=== PATIENT | male | born 1960 | race Caucasian/White ===

== ENCOUNTER 2018-03-12 09:51 | Emergency (ER) | payer MEDICARE ==
[2018-03-12] MEDS ORDERED: L.E.T. GEL 4%/0.5%/0.18% 3ML 3 ML/SYR SYG TP ONE (10:30)
== END 2018-03-12 13:22 | disposition home or self-care (01) ==
LOC: EDBD 09:51 → EDH 09:51
DX: S01.81XA Laceration without foreign body of other part of head, initial encounter (principal); Z88.2 Allergy status to sulfonamides; Z88.6 Allergy status to analgesic agent; Z88.8 Allergy status to other drugs, medicaments and biological substances; W07.XXXA Fall from chair, initial encounter; Y93.89 Activity, other specified; Y92.098 Other place in other non-institutional residence as the place of occurrence of the external cause; Y99.8 Other external cause status
CPT/HCPCS: 12011; 70450; 70486

== ENCOUNTER 2019-11-09 12:14 | Inpatient (IN) | payer MEDICARE ==
[2019-11-09 13:45] LABS: BASOPHILS % (AUTO) 0.1 % (0.0-5.0); HEMATOCRIT 30.6 % (42-54); LYMPHOCYTES % (AUTO) 1.9 % (21.0-51.0); MEAN CORPUSCULAR HEMOGLOBIN 30.4 pg (27.0-33.0); MEAN CORPUSCULAR HGB CONC 33.7 g/dL (32.0-36.0); MEAN CORPUSCULAR VOLUME 90.3 fL (79-99); MONOCYTES % (AUTO) 2.6 % (3.0-13.0); NEUTROPHILS % (AUTO) 94.4 % (40.0-77.0); PLATELET COUNT (AUTO) 167 K/uL (130-400); RED BLOOD CELL COUNT(AUTO) 3.39 MIL/uL (4.50-6.20); RED CELL DISTRIBUTION WIDTH 14.2 % (11.0-15.5); WHITE BLOOD COUNT (AUTO) 15.9 K/uL (4.8-10.8)
[2019-11-09] MEDS ORDERED: LORAZEPAM 2 MG/ML 1 ML VIAL ONE (13:47)
[2019-11-09 13:50] LABS: CREATININE 0.9 mg/dL (0.5-1.5); POTASSIUM 3.8 mmol/L (3.5-5.1)
[2019-11-09 13:52] LABS: INR 1.02 (0.85-1.15); PARTIAL THROMBOPLASTIN TIME 36.4 SEC (26.3-35.5)
[2019-11-09 13:54] LABS: ALBUMIN 2.9 g/dL (3.5-5.0); BILIRUBIN,TOTAL 0.7 mg/dL (0.2-1.0); TOTAL PROTEIN, SERUM 7.2 g/dL (6.0-8.3)
[2019-11-09 14:06] LABS: APPEARANCE,URINE Cloudy (CLEAR); BILIRUBIN,URINE Moderate (NEGATIVE); COLOR,URINE Dark Yellow (YELLOW); GLUCOSE, URINE (UA) Negative (NEGATIVE); KETONES,URINE Trace mg/dL (NEGATIVE); LEUKOCYTE ESTERASE ,URINE Small (NEGATIVE); NITRATE,URINE Negative (NEGATIVE); OCCULT BLOOD,URINE Negative (NEGATIVE); PROTEIN,URINE POS 1+ mg/dL (NEGATIVE)
[2019-11-09 14:20] LABS: BACTERIA,URINE Moderate /HPF (None Seen); MUCUS,URINE Few LPF (None Seen); SQUAMOUS EPITHELIAL CELL,UR Moderate /HPF (0-2)
[2019-11-09] MEDS ORDERED: CEFTRIAXONE SODIUM 1 GM ONE (15:45)
[2019-11-09] MEDS ORDERED: SODIUM CHLORIDE 0.9% 50 ML IV ONE (15:46)
[2019-11-09] MEDS: CEFTRIAXONE SODIUM 1 GM IV SCH (18:00)
[2019-11-09] MEDS ORDERED: ACETAMINOPHEN 325 MG TAB PO PRN (18:15)
[2019-11-09] MEDS: SODIUM CHLORIDE 0.9% 1000ML 1,000 ML IV SCH (18:15)
[2019-11-09] MEDS ORDERED: ONDANSETRON HCL 4 MG/2 ML VIAL IVP PRN (18:15)
[2019-11-09 23:20] VITALS: BP 125/67
[2019-11-10] MEDS ORDERED: LAMO100T66 PO (02:07)
[2019-11-10] MEDS ORDERED: BUSP30TA2 PO (02:07)
[2019-11-10] MEDS ORDERED: LURA120T PO (02:07)
[2019-11-10] MEDS ORDERED: LEVO88TA7 PO (02:07)
[2019-11-10] MEDS ORDERED: LEVE250T2 PO (02:07)
[2019-11-10] MEDS ORDERED: PHEN100C9 PO (02:07)
[2019-11-10] MEDS ORDERED: CLON0.5T4 PO (02:07)
[2019-11-10] MEDS ORDERED: MULT-411 PO (02:07)
--- NOTE | 2019-11-10 04:49 | NUR ---
Patient received from ED accompanied by a nurse to 331. Patient transferred from stretcher to bed and made comfortable. Assessment and nursing data base completed. Patient has on his left forehead, induration/bump with 2.5cm x 1cm laceration. Right forehead also has a 2cm x1/2cm laceration including small scratches on his head and face. Sacral area is binu. Skin barrier cream applied. Mepilex applied to ирина area on sacrum. Alexander catheter is in place and draining emir urine. Patient is confused and constantly trying to get out of bed, needing constant reminder to stay in bed. Bed alarm is on and functioning. Patient is in stable condition with no acute distress at this time. Will continue to monitor.
[2019-11-10] MEDS: CEFTRIAXONE SODIUM 1 GM IV SCH ×2 (05:59→18:57)
[2019-11-10 07:15] LABS: BASOPHILS % (AUTO) 0.2 % (0.0-5.0); EOSINOPHILS % (AUTO) 1.1 % (0.0-8.0); HEMATOCRIT 26.4 % (42-54); LYMPHOCYTES % (AUTO) 10.5 % (21.0-51.0); MEAN CORPUSCULAR HEMOGLOBIN 30.5 pg (27.0-33.0); MEAN CORPUSCULAR HGB CONC 33.7 g/dL (32.0-36.0); MEAN CORPUSCULAR VOLUME 90.4 fL (79-99); MONOCYTES % (AUTO) 4.6 % (3.0-13.0); NEUTROPHILS % (AUTO) 83.1 % (40.0-77.0); PLATELET COUNT (AUTO) 137 K/uL (130-400); RED BLOOD CELL COUNT(AUTO) 2.92 MIL/uL (4.50-6.20); RED CELL DISTRIBUTION WIDTH 14.6 % (11.0-15.5); WHITE BLOOD COUNT (AUTO) 6.3 K/uL (4.8-10.8)
[2019-11-10 07:29] LABS: ALBUMIN 2.2 g/dL (3.5-5.0); BILIRUBIN,TOTAL 0.3 mg/dL (0.2-1.0); CREATININE 0.7 mg/dL (0.5-1.5); POTASSIUM 3.8 mmol/L (3.5-5.1); TOTAL PROTEIN, SERUM 5.9 g/dL (6.0-8.3)
[2019-11-10 08:00] VITALS: BP 117/86
[2019-11-10] MEDS ORDERED: BUSPIRONE HCL 5 MG TABLET PO SCH (08:30)
[2019-11-10] MEDS ORDERED: BUSPIRONE HCL 30 MG PO SCH (09:00)
[2019-11-10] MEDS: MULTIVITAMINS/MINERALS/IRO TAB PO SCH (09:00)
[2019-11-10] MEDS: ENOXAPARIN SODIUM 30 MG/0.3 ML SQ SCH (10:21)
[2019-11-10] MEDS: PHENYTOIN SODIUM 100 MG ERCAP PO SCH ×3 (10:23→21:35)
[2019-11-10] MEDS: LEVETIRACETAM 250 MG TABLET PO SCH ×2 (10:23→21:35)
[2019-11-10] MEDS: LAMOTRIGINE 100 MG TABLET PO SCH ×2 (10:23→21:35)
[2019-11-10] MEDS: SODIUM CHLORIDE 0.9% 1000ML 1,000 ML IV SCH (10:24)
[2019-11-10] MEDS: FAMOTIDINE/PF 20 MG/2 ML VIAL IV SCH ×2 (10:24→21:36)
[2019-11-10 12:00] VITALS: BP 108/71
--- NOTE | 2019-11-10 12:39 | NUR ---
DYSPHAGIA EVAL COMPLETED. RECOMMEND MECHANICAL SOFT/GROUND, THIN LIQUIDS; PILLS CRUSHED WITH APPLESAUCE. Addendum: 11/10/19 at 1241 by RUTH COY, [facility] ST Amended: Links added.
[2019-11-10] MEDS ORDERED: MULTIVITAMINS/MINERALS/IRO TAB PO SCH (13:54)
[2019-11-10] MEDS ORDERED: LORAZEPAM 2 MG/ML 1 ML VIAL IVP ONE ×2 (14:25→16:40)
--- NOTE | 2019-11-10 15:01 | NUR ---
RD NOTIFICATION Pt admitted with Sepsis, UTI. Hx CP, severe IDD. Pt s/p ST evaluation; recommended Mechanical Soft, Ground diet order. GI Soft Puree diet order in place. FTT per EMR. Recommend Mechanical soft Ground diet order Recommend ENsure BID RD to continue to monitor. Please notify as additional nutrition concerns arise. Thank you.
--- NOTE | 2019-11-10 15:15 | NUR ---
PT WAS STILL VERY COMBATIVE AFTER RECEIVING 0.25 MG OF ATIVAN AND NOT ABLE TO GO FOR CT SCAN; I HAVE CALLED BUSINESS SUPPORT SPECIALIST CARLTON Cochran AND INFORMED HER AND RECEIVED ORDER FOR ATIVAN 0.5 MG I HAVE ALSO INFORMED HER THAT WE DO NOT CARRY RENGAL AND SHE STATED SHE TRY AND HAVE THE CARE FACILITY HE'S FROM BRING IT TO THE HOSPITAL. I HAVE CALLED REST [facility] FACILITY AND THE NUMBER IS BUSY WILL CONT TO MONITOR.
[2019-11-10 16:00] VITALS: BP 102/62
[2019-11-10] MEDS: BUSPIRONE HCL 5 MG TABLET PO SCH ×2 (17:00→21:34)
--- NOTE | 2019-11-10 17:13 | NUR ---
[facility] CM spoke to Meagan calle que for nursing home. Pt is assist with ADL's, currently living at a nursing home with 6 other residence. residential has DMEs available for pts. Denies any other equipments/services. Feels safe to go back to nursing home once stable. May Call [facility] or Nacho Boyle once pt ready to DC so that pt can be picked up via transport van. DC plan back to nursing home once stable. CM to cont to follow up. Addendum: 11/10/19 at 1716 by MIGUEL SAMPSON LVN CM Amended: Links added.
[2019-11-10] MEDS ORDERED: LORAZEPAM 2 MG/ML 1 ML VIAL ONE (18:52)
[2019-11-10] MEDS: LURASIDONE HCL 120 MG PO SCH (18:54)
--- NOTE | 2019-11-10 19:58 | NUR ---
PT FOUND ON FLOOR AT [facility] 10AM THIS MORNING, HE GOT OUT OF BED ON HIS OWN WITH ALL 4 SIDE RAILS UP, WE WERE ALERTED BECAUSE HIS BED ALARM WENT OFF; PT APPEARS TO HAVE NO INJURIES BUT IT IS DIFFICULT TO TELL BECAUSE OF HIS LOW MENTAL CAPACITY; I INFORMED CHEYANNE VINCENT, ASIYA MORALES, PT'S CARE FACILITY [facility] AND SPOKE TO DELANEY HENSON THERE; SHE STATES PT HAS FREQUENT FALLS THAT IS PART OF THE DIFFICULTY OF CARING FOR HIM AND THAT HE HAS NO FAMILY; PT WAS ASSISTED BACK TO BED REQUIRING ONE MAN ASSIST, HE IS ABLE TO STAND AND STEP BACK TO BED, NO NEW CUTS OR SKIN TEARS NOTED; CT OF HEAD WAS ORDERED BECAUSE PT HAS BEEN ON L[facility]OX.
[2019-11-10 20:00] VITALS: BP 98/68
--- NOTE | 2019-11-10 23:25 | NUR ---
AGITATION/COMBATIVE PT WITH INCREASED AGITATION AND COMBATIVENESS. PT PULLING ON HIS ELY AND IV SITE. REDIRECTION PROVIDED REPEATEDLY WITHOUT ANY SUCCESS. PAGED ONCALL TO REPORT PT'S CURRENT STATE. DR. OSULLIVAN ORDERED HALDOL 4MG IM X ONE. ORDER PLACED IN Orbiter, WILL CARRY OUT ORDER AND CLOSELY MONITOR PT.
[2019-11-10] MEDS ORDERED: HALOPERIDOL LACTATE 5 MG/ML VIAL IV ONE (23:45)
[2019-11-10] MEDS ORDERED: HALOPERIDOL LACTATE 5 MG/ML VIAL ONE (23:57)
[2019-11-11] VITALS (8 sets, daily range): BP systolic 95–117; BP diastolic 48–72
--- NOTE | 2019-11-11 00:29 | NUR ---
UPDATE PT RESTING CALMLY IN BED AFTER MEDICATION ADMIN. EVEN, UNLABORED RESPIRATIONS. X4 BED RAILS UP WITH SZ PADS IN PLACE. SITTER AT BEDSIDE. WILL CONT TO MONITOR.
--- NOTE | 2019-11-11 04:13 | NUR ---
NURSING ROUNDS PT ASLEEP, OBSERVED RISE AND FALL OF CHEST. EVEN, UNLABORED RESP. SITTER AT BED SIDE. IV FLUID INFUSING AT THIS TIME PER MAR. SZ PADS ON RAILS X4. VS STABLE. WILL CONTINUE TO MONITOR.
--- NOTE | 2019-11-11 04:47 | NUR ---
TRANSFER TO ROOM 225 ENDORSED TELEPHONE REPORT TO MANJU Mayfield RN. PT KARDEX SENT ALONG WITH CHART.
[2019-11-11 05:26] LABS: BASOPHILS % (AUTO) 0.2 % (0.0-5.0); EOSINOPHILS % (AUTO) 1.1 % (0.0-8.0); MEAN CORPUSCULAR HEMOGLOBIN 30.6 pg (27.0-33.0); MEAN CORPUSCULAR HGB CONC 34.4 g/dL (32.0-36.0); MONOCYTES % (AUTO) 4.5 % (3.0-13.0); PLATELET COUNT (AUTO) 136 K/uL (130-400); RED BLOOD CELL COUNT(AUTO) 2.81 MIL/uL (4.50-6.20); WHITE BLOOD COUNT (AUTO) 5.3 K/uL (4.8-10.8)
[2019-11-11] MEDS ORDERED: LEVOTHYROXINE 88 MCG TABLET ONE (05:47)
[2019-11-11 06:03] LABS: ALBUMIN 2.2 g/dL (3.5-5.0); BILIRUBIN,TOTAL 0.3 mg/dL (0.2-1.0); CREATININE 0.7 mg/dL (0.5-1.5); POTASSIUM 3.4 mmol/L (3.5-5.1); TOTAL PROTEIN, SERUM 5.7 g/dL (6.0-8.3)
[2019-11-11] MEDS: LEVOTHYROXINE 88 MCG TABLET PO SCH (06:49)
[2019-11-11] MEDS: CEFTRIAXONE SODIUM 1 GM IV SCH ×2 (06:49→17:37)
[2019-11-11] MEDS: LURASIDONE HCL 120 MG PO SCH (09:00)
[2019-11-11] MEDS: PHENYTOIN SODIUM 100 MG ERCAP PO SCH ×3 (09:57→22:59)
[2019-11-11] MEDS: MULTIVITAMINS/MINERALS/IRO TAB PO SCH (09:57)
[2019-11-11] MEDS: LEVETIRACETAM 250 MG TABLET PO SCH ×2 (09:57→22:59)
[2019-11-11] MEDS: FAMOTIDINE/PF 20 MG/2 ML VIAL IV SCH ×2 (09:57→22:59)
[2019-11-11] MEDS: BUSPIRONE HCL 5 MG TABLET PO SCH ×4 (09:57→22:59)
[2019-11-11] MEDS: LAMOTRIGINE 100 MG TABLET PO SCH ×2 (09:58→22:59)
[2019-11-11] MEDS: SODIUM CHLORIDE 0.9% 1000ML 1,000 ML IV SCH (10:15)
[2019-11-12] MEDS: SODIUM CHLORIDE 0.9% 1000ML 1,000 ML IV SCH ×2 (01:10→13:48)
[2019-11-12 04:19] VITALS: BP 147/81
[2019-11-12] MEDS: CEFTRIAXONE SODIUM 1 GM IV SCH ×2 (05:23→16:16)
[2019-11-12 05:51] LABS: BASOPHILS % (AUTO) 0.2 % (0.0-5.0); EOSINOPHILS % (AUTO) 1.3 % (0.0-8.0); HEMATOCRIT 26.1 % (42-54); MEAN CORPUSCULAR HEMOGLOBIN 30.4 pg (27.0-33.0); MEAN CORPUSCULAR HGB CONC 34.1 g/dL (32.0-36.0); MEAN CORPUSCULAR VOLUME 89.1 fL (79-99); NEUTROPHILS % (AUTO) 79.2 % (40.0-77.0); PLATELET COUNT (AUTO) 158 K/uL (130-400); RED BLOOD CELL COUNT(AUTO) 2.93 MIL/uL (4.50-6.20); RED CELL DISTRIBUTION WIDTH 13.9 % (11.0-15.5); WHITE BLOOD COUNT (AUTO) 6.1 K/uL (4.8-10.8)
[2019-11-12] MEDS: LEVOTHYROXINE 88 MCG TABLET PO SCH (06:12)
[2019-11-12 07:07] LABS: ALBUMIN 2.1 g/dL (3.5-5.0); BILIRUBIN,TOTAL 0.2 mg/dL (0.2-1.0); CREATININE 0.8 mg/dL (0.5-1.5); POTASSIUM 3.9 mmol/L (3.5-5.1); TOTAL PROTEIN, SERUM 5.6 g/dL (6.0-8.3)
[2019-11-12 08:00] VITALS: BP 130/76
[2019-11-12] MEDS: FAMOTIDINE/PF 20 MG/2 ML VIAL IV SCH ×2 (08:32→20:26)
[2019-11-12] MEDS: LEVETIRACETAM 250 MG TABLET PO SCH ×2 (08:32→20:26)
[2019-11-12] MEDS: PHENYTOIN SODIUM 100 MG ERCAP PO SCH ×3 (08:32→20:26)
[2019-11-12] MEDS: MULTIVITAMINS/MINERALS/IRO TAB PO SCH (08:33)
[2019-11-12] MEDS: LAMOTRIGINE 100 MG TABLET PO SCH ×2 (08:33→20:26)
[2019-11-12] MEDS: BUSPIRONE HCL 5 MG TABLET PO SCH ×4 (08:33→20:26)
[2019-11-12] MEDS: LURASIDONE HCL 120 MG PO SCH (08:36)
[2019-11-12 12:10] VITALS: BP 102/63
[2019-11-12 16:00] VITALS: BP 113/70
[2019-11-12 19:34] VITALS: BP 111/63
--- NOTE | 2019-11-12 20:10 | NUR ---
TAY CURRENTLY ON HOLD SINCE 11/10/19, BUT PENDING TO RESUME TOMORROW. Addendum: 11/12/19 at 2332 by MANJU LOW RN RN Amended: Links added.
[2019-11-12 23:12] VITALS: BP 105/63
[2019-11-13] MEDS: LEVOFLOXACIN 500 MG/D5W 100 ML 100 ML IV SCH (03:37)
[2019-11-13 03:46] VITALS: BP 122/67
[2019-11-13] MEDS: CEFTRIAXONE SODIUM 1 GM IV SCH ×3 (05:41→22:11)
[2019-11-13] MEDS: LEVOTHYROXINE 88 MCG TABLET PO SCH (06:09)
[2019-11-13 06:33] LABS: BASOPHILS % (AUTO) 0.2 % (0.0-5.0); EOSINOPHILS % (AUTO) 1.9 % (0.0-8.0); HEMATOCRIT 26.7 % (42-54); LYMPHOCYTES % (AUTO) 16.9 % (21.0-51.0); MEAN CORPUSCULAR HEMOGLOBIN 30.5 pg (27.0-33.0); MEAN CORPUSCULAR HGB CONC 34.5 g/dL (32.0-36.0); MEAN CORPUSCULAR VOLUME 88.4 fL (79-99); NEUTROPHILS % (AUTO) 74.3 % (40.0-77.0); PLATELET COUNT (AUTO) 160 K/uL (130-400); RED BLOOD CELL COUNT(AUTO) 3.02 MIL/uL (4.50-6.20); RED CELL DISTRIBUTION WIDTH 13.8 % (11.0-15.5); WHITE BLOOD COUNT (AUTO) 4.3 K/uL (4.8-10.8)
[2019-11-13 07:10] LABS: ALBUMIN 2.1 g/dL (3.5-5.0); BILIRUBIN,TOTAL 0.2 mg/dL (0.2-1.0); CREATININE 0.7 mg/dL (0.5-1.5); POTASSIUM 3.8 mmol/L (3.5-5.1); TOTAL PROTEIN, SERUM 5.7 g/dL (6.0-8.3)
[2019-11-13 08:00] VITALS: BP 117/72
[2019-11-13] MEDS: FAMOTIDINE/PF 20 MG/2 ML VIAL IV SCH ×2 (08:56→22:11)
[2019-11-13] MEDS: BUSPIRONE HCL 5 MG TABLET PO SCH ×4 (08:56→22:11)
[2019-11-13] MEDS: LEVETIRACETAM 250 MG TABLET PO SCH ×2 (08:56→22:11)
[2019-11-13] MEDS: PHENYTOIN SODIUM 100 MG ERCAP PO SCH ×3 (08:56→22:11)
[2019-11-13] MEDS: LURASIDONE HCL 120 MG PO SCH (08:57)
[2019-11-13] MEDS: ENOXAPARIN SODIUM 30 MG/0.3 ML SQ SCH ×2 (09:00→22:11)
[2019-11-13] MEDS: MULTIVITAMINS/MINERALS/IRO TAB PO SCH (09:01)
[2019-11-13] MEDS: LAMOTRIGINE 100 MG TABLET PO SCH ×2 (09:01→22:12)
[2019-11-13 11:00] VITALS: BP 103/68
--- NOTE | 2019-11-13 13:21 | NUR ---
FOLLOW UP COMPLETED. RECOMMENDED DIET S/P SWALLOW EVALUATION IS FOR MECHANICAL SOFT/GROUND, THIN LIQUID DIET. Pt WITH TOTAL INTAKE OF 100% OF TRAY THIS AM. RECOMMEND CONTINUED P.O. WITH RECOMMENDED DIET. Addendum: 11/13/19 at 1324 by RUTH COY, SPT ST Amended: Links added.
[2019-11-13 16:00] VITALS: BP 104/66
[2019-11-13 19:38] VITALS: BP 102/73
[2019-11-13 23:31] VITALS: BP 106/67
[2019-11-14 03:21] VITALS: BP 106/64
[2019-11-14 04:33] LABS: BASOPHILS % (AUTO) 0.5 % (0.0-5.0); EOSINOPHILS % (AUTO) 2.3 % (0.0-8.0); HEMATOCRIT 28.9 % (42-54); LYMPHOCYTES % (AUTO) 18.5 % (21.0-51.0); MEAN CORPUSCULAR HEMOGLOBIN 29.8 pg (27.0-33.0); MEAN CORPUSCULAR HGB CONC 33.9 g/dL (32.0-36.0); MEAN CORPUSCULAR VOLUME 87.8 fL (79-99); MONOCYTES % (AUTO) 8.7 % (3.0-13.0); NEUTROPHILS % (AUTO) 69.5 % (40.0-77.0); PLATELET COUNT (AUTO) 162 K/uL (130-400); RED BLOOD CELL COUNT(AUTO) 3.29 MIL/uL (4.50-6.20); RED CELL DISTRIBUTION WIDTH 13.7 % (11.0-15.5); WHITE BLOOD COUNT (AUTO) 4.4 K/uL (4.8-10.8)
[2019-11-14] MEDS: LEVOFLOXACIN 500 MG/D5W 100 ML 100 ML IV SCH (04:50)
[2019-11-14 05:12] LABS: ALBUMIN 2.2 g/dL (3.5-5.0); BILIRUBIN,TOTAL 0.2 mg/dL (0.2-1.0); CREATININE 0.7 mg/dL (0.5-1.5); CRP QUANTITATIVE 39.3 mg/L (0.00-9.0); POTASSIUM 4.1 mmol/L (3.5-5.1)
[2019-11-14] MEDS: LEVOTHYROXINE 88 MCG TABLET PO SCH (06:40)
[2019-11-14 07:00] VITALS: BP 120/72
[2019-11-14] MEDS: CEFTRIAXONE SODIUM 1 GM IV SCH ×2 (09:00→20:21)
[2019-11-14] MEDS: LEVETIRACETAM 250 MG TABLET PO SCH ×2 (09:00→20:21)
[2019-11-14] MEDS: LURASIDONE HCL 120 MG PO SCH (09:00)
[2019-11-14] MEDS: MULTIVITAMINS/MINERALS/IRO TAB PO SCH (09:00)
[2019-11-14] MEDS: PHENYTOIN SODIUM 100 MG ERCAP PO SCH ×3 (09:00→20:21)
[2019-11-14] MEDS: LAMOTRIGINE 100 MG TABLET PO SCH ×2 (09:00→20:21)
[2019-11-14] MEDS: FAMOTIDINE/PF 20 MG/2 ML VIAL IV SCH ×2 (09:00→20:21)
[2019-11-14] MEDS: BUSPIRONE HCL 5 MG TABLET PO SCH ×4 (09:00→20:22)
[2019-11-14 11:12] VITALS: BP 117/61
[2019-11-14 15:22] VITALS: BP 107/60
[2019-11-14 19:59] VITALS: BP 103/60
[2019-11-14] MEDS: ENOXAPARIN SODIUM 30 MG/0.3 ML SQ SCH (20:23)
[2019-11-14 23:13] VITALS: BP 111/65
[2019-11-15 03:44] VITALS: BP 113/68
[2019-11-15] MEDS: LEVOFLOXACIN 500 MG/D5W 100 ML 100 ML IV SCH (04:59)
[2019-11-15 06:11] LABS: BASOPHILS % (AUTO) 0.3 % (0.0-5.0); EOSINOPHILS % (AUTO) 2.8 % (0.0-8.0); HEMATOCRIT 28.9 % (42-54); LYMPHOCYTES % (AUTO) 21.4 % (21.0-51.0); MEAN CORPUSCULAR HEMOGLOBIN 30.2 pg (27.0-33.0); MEAN CORPUSCULAR HGB CONC 33.9 g/dL (32.0-36.0); MEAN CORPUSCULAR VOLUME 89.2 fL (79-99); MONOCYTES % (AUTO) 10.6 % (3.0-13.0); NEUTROPHILS % (AUTO) 64.6 % (40.0-77.0); PLATELET COUNT (AUTO) 203 K/uL (130-400); RED BLOOD CELL COUNT(AUTO) 3.24 MIL/uL (4.50-6.20); RED CELL DISTRIBUTION WIDTH 13.5 % (11.0-15.5)
[2019-11-15 06:24] LABS: BILIRUBIN,TOTAL 0.2 mg/dL (0.2-1.0); CREATININE 0.7 mg/dL (0.5-1.5); POTASSIUM 4.2 mmol/L (3.5-5.1)
[2019-11-15 06:25] LABS: ALBUMIN 2.3 g/dL (3.5-5.0); TOTAL PROTEIN, SERUM 6.1 g/dL (6.0-8.3)
[2019-11-15] MEDS: LEVOTHYROXINE 88 MCG TABLET PO SCH (06:34)
[2019-11-15 08:09] VITALS: BP 113/65
[2019-11-15] MEDS: LURASIDONE HCL 120 MG PO SCH (09:00)
--- NOTE | 2019-11-15 09:00 | NUR ---
AM ASSESSMENT PT LAYING IN BED, HOB ELEVATED 30 DEGREES, RESTING. NON-VERBAL. NO SOB. NO DISTRESS NOTED. NO PAIN,NO DISCOMFORT NOTED. NO N/V. NO DIARRHEA. INCONTINENT BOWEL & BLADDER. BEDREST. BED FALL ALARM. BED @ LOWEST LEVEL. SIDE RAILS UP. 1:1 SITTER.
[2019-11-15] MEDS: PHENYTOIN SODIUM 100 MG ERCAP PO SCH ×2 (09:10→14:07)
[2019-11-15] MEDS: LEVETIRACETAM 250 MG TABLET PO SCH (09:10)
[2019-11-15] MEDS: LAMOTRIGINE 100 MG TABLET PO SCH (09:10)
[2019-11-15] MEDS: BUSPIRONE HCL 5 MG TABLET PO SCH ×2 (09:11→14:07)
[2019-11-15] MEDS: MULTIVITAMINS/MINERALS/IRO TAB PO SCH (09:11)
[2019-11-15] MEDS: FAMOTIDINE/PF 20 MG/2 ML VIAL IV SCH (09:11)
[2019-11-15] MEDS: CEFTRIAXONE SODIUM 1 GM IV SCH (09:12)
[2019-11-15 11:23] VITALS: BP 98/61
--- NOTE | 2019-11-15 13:39 | NUR ---
DC PLAN SPOKE TO DR. CEJA AND NURSE REGARDING PATIENT. PATIENT ON RA IMPROVED CAN GO HOME ON PO MEDS. SPOKE TO [facility] [phone]. SPOKE TO SEVERAL PEOPLE INCLUDING NURSE. GOT OKAY TO RETURN TO FACILITY. SAID TO FAX ABX ORDER TO [phone]. FAXED AND RECEIVED OKAY CONFIRMATION. PLACED ORIGINAL IN CHART. COVID AND EMS FILLED AND IN CHART. FAXED TO EMS. PATIENT IS ON RA BUT BEDBOUND AT THIS TIME. EMS TO TAKE PATIENT BACK TO [place] [id number] [facility] [place] [id number]. DID LET NURSE KNOW PATIENT HAS NOT BEEN AMBULATING. PT TRIED TO WORK WITH PATIENT BUT TRIED TO BITE THEM AND PULL IV OUT. NOT ABLE TO COOPERATE. Addendum: 11/15/19 at 1343 by KELSI HELLER RN CM Amended: Links added.
--- NOTE | 2019-11-15 13:43 | NUR ---
FOLLOW UP COMPLETED. ' Pt WITH SITTER AT THIS TIME. Pt WITH IMPROVED ORAL INTAKE. Pt WITH LOW LIQUID INTAKE AT THIS TIME. NO OVERT S/S OF ASPIRATION PRESENT DURING MEALS. RECOMMEND CONTINUED MECHANICAL SOFT/GROUND, THIN LIQUID DIET. Addendum: 11/15/19 at 1348 by RUTH COY, [facility] ST Amended: Links added.
--- NOTE | 2019-11-15 13:45 | NUR ---
DISCHARGE REPORT GIVEN TO DELANEY Edward/GROUP CRAIG OROZCO. ABX PRESCRIPTION FAXED TO PHARMACY. ORIGINAL PRESCRIPTION SENT TO [facility]. PRESCRIPTION ALSO FAXED TO PHARMACY.
--- NOTE | 2019-11-15 13:55 | NUR ---
[facility]CHARGE [facility] CALLED TO REQUEST TRANSPORT.
[2019-11-15 16:18] VITALS: BP 117/63
--- NOTE | 2019-11-15 16:40 | NUR ---
DISCHARGE EMS HERE TO TRANSPORT PT TO [facility].
== END 2019-11-15 17:00 | disposition home or self-care (01) | DRG 872 ==
LOC: EDH 12:14 → EDHIP 16:05 → 3AH 23:20 → 2DH 11-11 04:14
PROVIDERS: ADMIT Internal Medicine; ATTEND Internal Medicine
DX: A41.9 Sepsis, unspecified organism (principal); N39.0 Urinary tract infection, site not specified; R47.01 Aphasia; E44.0 Moderate protein-calorie malnutrition; R62.7 Adult failure to thrive; Z20.828 Contact with and (suspected) exposure to other viral communicable diseases; G80.9 Cerebral palsy, unspecified; E03.9 Hypothyroidism, unspecified; B96.5 Pseudomonas (aeruginosa) (mallei) (pseudomallei) as the cause of diseases classified elsewhere; R53.81 Other malaise; G40.909 Epilepsy, unspecified, not intractable, without status epilepticus; B96.20 Unspecified Escherichia coli [E. coli] as the cause of diseases classified elsewhere; D64.9 Anemia, unspecified; E86.0 Dehydration; W19.XXXA Unspecified fall, initial encounter; Y93.89 Activity, other specified; Y92.098 Other place in other non-institutional residence as the place of occurrence of the external cause; Y99.8 Other external cause status; Z88.2 Allergy status to sulfonamides; Z88.8 Allergy status to other drugs, medicaments and biological substances
CPT/HCPCS: 36415; 70450; 72170; 73070; 73560; 80053; 80185; 81001; 82550; 83690; 84134; 84145; 84484; 85025; 85610; 85730; 86140; 87040; 87077; 87088; 87186; 87426; 92610; G0378; J0696; J1630; J1650; J1956; J2060; J3490; J7030; U0003

== ENCOUNTER 2019-11-18 12:05 | Emergency (ER) | payer MEDICARE ==
[~2019-11-18 12:05] MED LIST: BUSP30TA2 PO; CLON0.5T4 PO; LAMO100T66 PO; LEVE250T2 PO; LEVO88TA7 PO; LURA120T PO; MULT-411 PO; PHEN100C9 PO
[2019-11-18] MEDS ORDERED: OCTYL 2-CYANOACRYLATE 1 EACH TP ONE (13:43)
== END 2019-11-18 14:20 | disposition home or self-care (01) ==
LOC: EDH 12:05
DX: S00.01XA Abrasion of scalp, initial encounter (principal); E03.9 Hypothyroidism, unspecified; Z88.8 Allergy status to other drugs, medicaments and biological substances; Z88.2 Allergy status to sulfonamides; W18.39XA Other fall on same level, initial encounter; Y93.89 Activity, other specified; Y92.89 Other specified places as the place of occurrence of the external cause; Y99.8 Other external cause status
CPT/HCPCS: 12001; 70450

== ENCOUNTER 2019-11-30 08:06 | Emergency (ER) | payer MEDICARE ==
[2019-11-30 09:47] LABS: BASOPHILS % (AUTO) 0.2 % (0.0-5.0); EOSINOPHILS % (AUTO) 2.2 % (0.0-8.0); HEMATOCRIT 34.8 % (42-54); LYMPHOCYTES % (AUTO) 13.3 % (21.0-51.0); MEAN CORPUSCULAR HEMOGLOBIN 30.2 pg (27.0-33.0); MEAN CORPUSCULAR HGB CONC 32.8 g/dL (32.0-36.0); MEAN CORPUSCULAR VOLUME 92.3 fL (79-99); MONOCYTES % (AUTO) 3.7 % (3.0-13.0); NEUTROPHILS % (AUTO) 80.2 % (40.0-77.0); PLATELET COUNT (AUTO) 153 K/uL (130-400); RED BLOOD CELL COUNT(AUTO) 3.77 MIL/uL (4.50-6.20); WHITE BLOOD COUNT (AUTO) 4.7 K/uL (4.8-10.8)
[2019-11-30 10:41] LABS: BILIRUBIN,TOTAL 0.3 mg/dL (0.2-1.0); CREATININE 0.8 mg/dL (0.5-1.5); POTASSIUM 4.5 mmol/L (3.5-5.1); TOTAL PROTEIN, SERUM 6.9 g/dL (6.0-8.3)
[2019-11-30 10:46] LABS: B-TYPE NATRIURETIC PEPTIDE 39 pg/mL (0-100)
== END 2019-11-30 11:36 | disposition home or self-care (01) ==
LOC: EDH 08:06
DX: R09.02 Hypoxemia (principal); Z20.828 Contact with and (suspected) exposure to other viral communicable diseases; E03.9 Hypothyroidism, unspecified; Z88.8 Allergy status to other drugs, medicaments and biological substances; Z88.2 Allergy status to sulfonamides
CPT/HCPCS: 36415; 71045; 80053; 83880; 84484; 85025; 87426; 93005